=== PATIENT | male | born 1985 | race Caucasian/White ===

== ENCOUNTER 2016-09-15 11:17 | Emergency (ER) | payer MEDICAID, OTHER ==
--- NOTE | 2016-09-15 12:09 | RAD ---
CHEST - 2 VIEWS COMPARISON: None. HISTORY: Cough for 10 days. FINDINGS: Views: Frontal and lateral chest Lungs: Normal Heart and vessels: Normal Trachea and bronchi: Normal Mediastinum and fernandez: Normal Costophrenic sulci: Normal Chest wall and bones: Normal. Upper abdomen: Normal. IMPRESSION: Negative 2 view chest.
== END 2016-09-15 12:28 | disposition home or self-care (01) ==
LOC: ED 11:17
DX: R05 Cough (principal); F17.210 Nicotine dependence, cigarettes, uncomplicated